=== PATIENT | female | born 1975 | race Caucasian/White ===

== ENCOUNTER 2016-04-14 09:35 | Emergency (ER) | payer OTHER ==
[2016-04-14 09:50] VITALS: BP 142/92; PULSE 65; RESP 16; TEMP 98.4; O2SAT 99
--- NOTE | 2016-04-14 11:04 | UCPHY ---
H & P Time Seen by Provider: 04/14/16 09:44 Patient Type: New HPI/ROS: 40-year-old female presents complaining of rash to her buttocks and although vaginal area for several days following taking amoxicillin. She applied hydrocortisone to the area and is concerned that maybe she has an allergy to hydrocortisone Social History: No alcohol and no drugs Smoking Status: Never smoked Physical Exam: 40-year-old female alert and oriented in no acute distress nontoxic appearance Alert and oriented in no acute distress nontoxic appearance, afebrile Atraumatic normocephalic Neck no JVD Lungs clear to auscultation, no respiratory distress Heart regular rate and rhythm Extremities no cyanosis clubbing edema Buttock erythematous papular rash with satellite lesions to buttocks and vulvovaginal area, no purulent drainage no pustules no vesicles Constitutional: Initial Vital Signs Temperature (C) 36.9 C 04/14/16 09:48 Heart Rate 65 04/14/16 09:48 Respiratory Rate 16 04/14/16 09:48 Blood Pressure 142/92 H 04/14/16 09:48 O2 Sat (%) 99 04/14/16 09:48 O2 Delivery Mode Room Air Allergies/Adverse Reactions: bacitracin [From Neosporin ([id number])] Allergy (Intermediate, Verified 09:50) Rash bacitracin zinc [From Neosporin ([id number])] Allergy (Intermediate, Verified 04/14/16 09:50) Rash neomycin sulfate [From Neosporin ([id number])] Allergy (Intermediate, Verified 04/14/16 09:50) Rash polymyxin B [From Neosporin ([id number])] Allergy (Intermediate, Verified 09:50) Rash Sulfa (Sulfonamide Antibiotics) Allergy (Intermediate, Verified 04/14/16 09:50) Hives Home Medications: Medication Instructions Recorded Amoxicillin 04/14/16 Fluconazole [Diflucan (*)] 150 mg PO ONCE #3 tab 04/14/16 Nystatin [Mycostatin 15Gm] 1 elfego TP BID #1 oint 04/14/16 Medical Decision Making ED Course/Re-evaluation: Patient seen and evaluated for rash to buttocks congenital area following a 10 day course of amoxicillin, she had tried hydrocortisone ointment on it and it was worsening. She has taken 1 dose of Diflucan without improvement Differential diagnosis Candidal dermatitis, candidal vulvovaginitis, allergic dermatitis Impression Candidal vulvovaginitis/dermatitis in buttock area Plan Diflucan 150 mg 1 p. o. Q 72 hours x3 doses Nystatin twice daily Keep area as dry as possible Follow up with her primary care physician Return for high fever or worsening symptoms Departure - Departure Disposition: Home, Routine, Self-Care Clinical Impression: Candidiasis Condition: Good Instructions: Skin Yeast Infection (ED), Vulvovaginal Candidiasis (ED) Referrals: NONE *PRIMARY CARE P,. [Primary Care Provider] - As per Instructions Prescriptions: Fluconazole [Diflucan (*)] 150 mg PO ONCE #3 tab Nystatin [Mycostatin 15Gm] 1 elfego TP BID #1 oint - PQRS PQRS Measurement: na
== END 2016-04-14 11:07 | disposition home or self-care (01) ==
LOC: CED 09:35
DX: B37.3 Candidiasis of vulva and vagina (principal)
CPT/HCPCS: 99203-PO; G0463-PO